=== PATIENT | male | born 1975 | race Caucasian/White ===

== ENCOUNTER → 2022-02-04 15:18 | Outpatient (BNVA) | payer MEDICAID, SELFPAY | PROVIDERS: Family Provider Family Medicine; Visit Provider Registered Nurse | DX: Z79.899 Other long term (current) drug therapy (principal) | CPT/HCPCS: 80053; 80061; 82306; 83036; 83721; 84443; 85025 ==

== ENCOUNTER → 2022-03-27 07:57 | Outpatient (BNVA) | payer MEDICAID, SELFPAY | PROVIDERS: Family Provider Family Medicine; Visit Provider Urology | DX: L72.3 Sebaceous cyst (principal) | CPT/HCPCS: G0463; 81003; 99203 ==

== ENCOUNTER → 2023-02-17 13:57 | Outpatient (BNVA) | payer MEDICAID, SELFPAY | PROVIDERS: Family Provider Family Medicine; PCP Family Medicine; Visit Provider Registered Nurse | DX: Z79.899 Other long term (current) drug therapy (principal) | CPT/HCPCS: 80053; 80061; 80164; 82306; 82607; 83036; 83540; 83721; 84443; 85025 ==

== ENCOUNTER 2023-12-01 22:37 | Inpatient (IN) | payer MEDICAID, SELFPAY ==
[2023-12-01 22:42] VITALS: BMI 30.6
[2023-12-01 22:48] VITALS: BP 163/103; PULSE 122; RESP 20; TEMP 36.6; O2SAT 95
[2023-12-01 22:54] LABS: Glucose Point of Care 304 mg/dL (70-110)
[2023-12-02 00:03] LABS: Alcohol Level < 10 mg/dL (0-10)
[2023-12-02] MEDS: trazodone 50 mg Tablet PO (00:05)
--- NOTE | 2023-12-02 00:30 | PC.NURSE ---
Admission Note Pt arrived to NPU at 2232 by EMS from [facility]. Pt states that he is here because he has been off his psych medications for 3 weeks and today he attempted to cut his wrists but his aunt caught him and called EMS to bring him to the hospital. He states that he has just been feeling really depressed lately. Pt denies SI/HI/AVH at this time. Pt is dressed into N[facility] scrubs and orientated to the unit. Pt is now observed resting in bed quietly with eyes closed. Behavioral monitoring continues
[2023-12-02 06:00] VITALS: BP 147/75; PULSE 90; RESP 18; TEMP 36.6; O2SAT 93
--- NOTE | 2023-12-02 06:30 | P.NPUHP_ITS ---
Providers/Chief Complaint Admitting Physician: Mark Ramos MD Primary Care Provider: Ruth Ann Carranza DO HPI NPU History of Present Illness Barrie Almanzar is a 48 year old male who presented to the emergency department at outside hospital reporting that he had been off of his medication for 2 weeks and starting to feel increased depression and suicidal thoughts. He was transferred to [facility] and admitted to the neuropsychiatric unit for definitive treatment of those issues. He is known to [facility] through services dating back to [address] He is unknown to the neuropsychiatric unit. An excerpt of an outpatient psychiatric evaluation from February 2014 is included for historical context. He presented today reporting: CHIEF COMPLAINT Patient ran out of medication a couple of weeks ago, starting to feel depressed and suicidal. HISTORY OF THE PRESENT COMPLAINT Barrie, the patient, reported that he had run out of his medication a couple of weeks ago due to transportation issues and difficulties in accessing his doctor's office. He has been off his medication for a couple of weeks and has started to feel depressed and suicidal. The medications he was on before he ran out include Terequel, Depakote, Select Halima, and Buspar. Barrie has been dealing with symptoms of bipolar depression and anxiety for about five years. He first started experiencing these symptoms and needing medication around the same time. A significant event that occurred around this time was the loss of his mother, which he reported as a major stressor. When he is depressed, Barrie experiences low energy, anhedonia, sleep problems, and feelings of helplessness, hopelessness, and worthlessness. He has also had suicidal thoughts, although this is the first time he has reported them. He denied experiencing paranoia, hallucinations, or severe nightmares or flashbacks about traumatic events in his life. Barrie reported that he uses tobacco and consumes alcohol very little. He denied using marijuana, cocaine, methamphetamine, opiates, or pain pills, except for prescribed hydrocodone. He has not had any problems with these substances in the past and has never been to rehab or had a DUI. Barrie's goal is to get his medications back on track to manage his symptoms. He has been on disability since around 2014 or 2015 and currently lives with his aunt. He has not had any legal problems or been to halfway. He reported having high blood pressure and diabetes, as well as degenerative disc disease. He has had surgeries for a cyst on his left wrist and a stomach hernia. At the time of the consultation, Barrie described his mood as okay and denied having current thoughts of self-harm or harm to others. He also denied feeling paranoid or experiencing hallucinations. MENTAL HEALTH HISTORY Patient has been dealing with symptoms for about five or six years, following the loss of his mother. Diagnosed with bipolar depression and anxiety. No history of psychiatric hospitalization. No history of substance abuse or addiction. No history of sexual abuse. No history of traumatic events. No history of service. No history of legal problems. SOCIAL HISTORY Patient has difficulty with transportation, leading to difficulty in accessing medical care. Patient uses tobacco and consumes alcohol very little. No use of cannabis, cocaine, methamphetamine, opiates, or pain pills. Patient has a younger sister. Patient was once and is now . Patient is on disability since 2014 or 2015. Patient lives with his aunt. Per his 02/21/2014 [facility] outpatient psychiatric evaluation: [facility] Outpatient Progress Note Time in: 10:40 AM Time out: 11:20 AM Chief Complaint: Depression and bipolar History of present illness: Barrie is a 38-year-old white male who presents for the evaluation of bipolar disorder. He was given this diagnosis several years ago and has been tried on a few different mood stabilizers including Depakote, Seroquel, and Lamictal with no benefit. He currently is taking a combination of bupropion XL 150 mg daily, temazepam 30 mg at night, and Lamictal 100 mg daily. He has received no benefit from this medication. He is not having any side effects. I asked him why he carries a diagnosis of bipolar disorder he tells me I have mood swings that happen real quickd . Basically he has affective dysregulation, poor frustration tolerance, and irritability that has been confused for manic episodes. He could not describe anything that sounds remotely close to a manic episode in his life. The longest a mood swing has lasted has been for a couple hours and is usually only a few minutes. Given this, I am changing his diagnosis. I have no doubt that he is depressed and he is obviously quite melancholic today. He endorses frequent tearfulness, depression, anhe donia, appetite loss, difficulty initiating and sustaining sleep, and passive thoughts of . He has thoughts of suicide quite frequently, but denies that he would ever do anything to harm himself and he has no desire to harm himself in these thoughts are ego dystonic. He tells me that he has depression that comes and goes, but he is never happy. His entire adult life he has been depressed and I think he most likely has dysthymic disorder on top of major depression. He is an anxious fellow, but I do not think he has generalized anxiety disorder. A major problem he has difficulty initiating and sustaining sleep. He does not have a decreased need for sleep, rather he has insomnia. He has been diagnosed with obstructive sleep apnea and he tells me that he wears his CPAP machine consistently. She has a lot of problems in his life for him. He is attempting to get disability because of a chronic back problem, he has poor, he is isolated from his social network, and his stepfather is dying. In fact, he tells me that his stepfather most likely today and he was quite shaken up about this. I offer to reschedule his evaluation, but he wanted to go through with it today. I explained to him that any treatment we give needs to be viewed in light of the fact that he is going through bereavement. Barrie is a rather simple man and I suspect that there is a borderline level of intellectual functioning. He was in special classes growing up and states I am slow . Past Psychiatric History: No hospitalizations, no suicide attempts, no history of self-mutilation. Family Psychiatric History: He tells me that everyone in his family has been diagnosed with bipolar disorder, but I doubt this. No family history of suicide. Past Medical History:COPD, obstructive sleep apnea, asthma, hypertension, chronic back pain Substance Use History: He has never had a problem with drugs or alcohol. He rarely drinks alcohol and has never tried illicit substances. Social History: He was born and raised in [place]. His parents when he was 5 years old and he has no contact with his biological father. His mother his stepfather when he was 5 and he tells me he's been my father since then . His stepfather is currently dying. Barrie has one full sister and 5 half siblings very at he tells me that his childhood was aright . There is no history of physical or sexual trauma. He was in special education classes and he quit in 10th grade, but ended up getting a GED. He lives in trouble with his girlfriend Tahira and they have been together for 4 years. He was once for 6 years in his 20s, but they had a mutual separation. He has no children. He is unemployed and trying to get disability. He has no access to firearms. He tells me that he believes in God, but does not go to [facility]. He has no current legal problems and only has a history of shoplifting on one occasion. Meds NPU Home Medications Medication Instructions Recorded Confirmed Last Taken Type insulin glargine 100 unit/mL 25 unit SUBCUT .bedtime 10/10/19 12/01/23 12/01/23 History subcutaneous solution (Lantus U-100 Insulin) gabapentin 300 mg capsule 300 mg PO TID 02/04/22 12/01/23 12/01/23 History cholecalciferol (vitamin D3) 25 25 mcg PO DAILY 02/27/22 12/01/23 12/01/23 History mcg (1,000 unit) capsule empagliflozin 5 mg-metformin 1,000 1 tab PO BID 02/27/22 12/01/23 12/01/23 History mg tablet (Synjardy) hydrocodone 7.5 mg-acetaminophen 1 tab PO BID PRN Pain (Scale Score 02/27/22 12/01/23 Unknown History 325 mg tablet 4-6) omeprazole 40 mg capsule,delayed 40 mg PO DAILY 02/27/22 12/01/23 12/01/23 History release albuterol sulfate 2.5 mg/3 mL 2.5 mg inhalation Q6H 03/05/22 12/01/23 Unknown History (0.083 %) solution for nebulization atorvastatin 40 mg tablet 40 mg PO DAILY 03/05/22 12/01/23 12/01/23 History fluticasone propionate 50 1 spray intranasal BID 03/05/22 12/01/23 12/01/23 History mcg/actuation nasal spray,suspension levocetirizine 5 mg tablet 5 mg PO DAILY 03/05/22 12/01/23 12/01/23 History ropinirole 0.25 mg tablet 0.25 mg PO DAILY 03/05/22 12/01/23 11/30/23 History metoprolol tartrate 50 mg tablet 25 mg PO BID 09/16/22 12/01/23 12/01/23 History buspirone 30 mg tablet See Rx Instructions .Route 03/30/23 12/01/23 3 Weeks Ago Rx .COMPLEX #60 tabs ~11/10/23 citalopram 40 mg tablet See Rx Instructions .Route 03/30/23 12/01/23 3 Weeks Ago Rx .COMPLEX #30 tabs ~11/10/23 divalproex 250 mg tablet,extended See Rx Instructions .Route 03/30/23 12/01/23 3 Weeks Ago Rx release 24 hr .COMPLEX #120 tabs ~11/10/23 quetiapine 200 mg tablet See Rx Instructions .Route 03/30/23 12/01/23 3 Weeks Ago Rx .COMPLEX #30 tabs ~11/10/23 trazodone 100 mg tablet See Rx Instructions .Route 03/30/23 12/01/23 3 Weeks Ago Rx .COMPLEX #60 tabs ~11/10/23 Allergies Allergy/AdvReac Type Severity Reaction Status Date / Time bacitracin Allergy Unknown Unknown Verified 03/27/22 08:08 chlorzoxazone Allergy Unknown Unknown Verified 03/27/22 08:08 [From Parafon Forte] neomycin Allergy Unknown Unknown Verified 03/27/22 08:08 polymyxin B Allergy Unknown Unknown Verified 03/27/22 08:08 PFSH NPU PFSH: Medical History (Updated 12/02/23 @ 21:16 by Mark Ramos MD) Insomnia Psychiatric care Obstructive sleep apnea (adult) (pediatric) Nicotine dependence, cigarettes, with other nicotine-induced disorders Bipolar disorder, current episode depressed, moderate Family History Mother , in 60s Diabetes CAD (coronary artery disease) Heart attack Social History Smoking and tobacco/nicotine status: current every day tobacco/nicotine user Alcohol intake: current Alcohol intake frequency: holidays/special occasions only Adopted: No Household members: significant other Marital status: Current occupational status: disabled Mental Status Exam MSE Comments: This is an obese white male in hospital scrubs with limited grooming and eye contact. No abnormal movements except for psychomotor retardation. Cooperative with exam in mild distress. Speech was decreased rate and volume. Mood described as depressed, affect congruent and tearful. Thought process organized. Thought content: Patient endorsed some suicidal ideation prior to admission but currently denies suicidal or homicidal ideations, there were no delusions reported or noted, he denied any visual hallucinations but endorses auditory hallucinations. Patient reports feelings of depression, helplessness, hopelessness, worthlessness. Patient has been suicidal. Patient reports low energy, lack of enjoyment in activities, and sleep problems. No current thoughts of self-harm or harm to others. No paranoia. No auditory or visual hallucinations. Mood described as okay .Attention and concentration were limited and memory appeared mostly reliable but were not formally tested. He is alert and oriented x3. Insight and judgment are limited but improving and impulse control is limited versus impaired. Vitals/I&O/Wt Last Vital Signs Temp 97.9 F 12/02/23 06:00 Pulse 90 12/02/23 06:00 Resp 18 12/02/23 06:00 BP 147/75 12/02/23 06:00 Pulse Ox 93 12/02/23 06:00 O2 Del Method Room Air 12/02/23 06:00 Weight last 48 hrs Weight 99.564 kg A&P Assessment and plan (1) Bipolar disorder, current episode depressed, moderate: (2) Obstructive sleep apnea (adult) (pediatric): (3) Nicotine dependence, cigarettes, with other nicotine-induced disorders: (4) Anxiety: Plan This is a 48-year-old white male known to the [facility] system from a long history of treatment with reports of anxiety, depression and some psychosis that has been dealing with bipolar depression and anxiety. Patient's symptoms have been exacerbated by the loss of his mother years ago and the recent discontinuation of his medication. Patient's social situation, including difficulty with transportation and living situation, may be contributing to his mental health issues. 1. Restart previous medication. 2. Continue every 15 minute checks for safety. 3. Encourage individual, group and milieu therapy. 4. Encourage sober living treatment at the highest level of care to which he is willing to commit. Involuntary Hold Information 96 Hour Hold: 96 Hour Involuntary Admission: No Attestations U Medical Necessity Statement*: Inpatient psychiatric evaluation is medically necessary and the clinically appropriate intervention at this time. We will monitor/initiate medications and make changes as indicated. He will be in the hospital for over 2 midnights. Likely length of stay 3 to 5 days. Coding Level of Care Code Acute Code for Chg Fwd Diagnoses Bipolar disorder, current episode depressed, moderate F31.32 Obstructive sleep apnea (adult) (pediatric) G47.33 Nicotine dependence, cigarettes, with other nicotine-induced disorders F17.218 Anxiety F41.9
[2023-12-02 07:37] LABS: Glucose Point of Care 166 mg/dL (70-110)
[2023-12-02] MEDS: atorvastatin 40 mg Tablet PO (09:21)
[2023-12-02] MEDS: metoprolol tartrate 50 mg Tablet 25 MG PO ×2 (09:21→17:15)
[2023-12-02] MEDS: pantoprazole DR 40 mg Tablet PO (09:21)
[2023-12-02] MEDS: gabapentin 300 mg Capsule PO ×3 (09:21→21:05)
[2023-12-02] MEDS: nicotine 4 mg lozenge MUCOUS MEM ×2 (09:29→17:30)
[2023-12-02] MEDS: hyDROXYzine 25 mg Capsule 50 MG PO ×2 (10:38→21:05)
[2023-12-02 11:56] LABS: Glucose Point of Care 264 mg/dL (70-110)
--- NOTE | 2023-12-02 12:21 | PC.NURSE ---
patient suspects that he is having an allergic/adverse reaction to vistaril. VS are WNLs. Patient denies itchy throat, swollen tongue, rash. Patient reports sweating.
[2023-12-02] MEDS: OLANZapine 5 mg ODT PO (12:25)
--- NOTE | 2023-12-02 12:26 | PC.NURSE ---
patient suspects that he is having an allergic/adverse reaction to vistaril. VS are WNLs. Patient denies itchy throat, swollen tongue, rash. Patient reports sweating.
[2023-12-02 13:18] VITALS: BP 143/96; PULSE 112; RESP 17; TEMP 36.3; O2SAT 95
[2023-12-02 13:22] LABS: Glucose Point of Care 281 mg/dL (70-110)
[2023-12-02] MEDS: ibuprofen 600 mg Tablet PO (14:37)
--- NOTE | 2023-12-02 14:45 | P.CONIM_ITS ---
Providers/Reason For Consult 2 Consulting Physician/Specialty*: Internal medicine/Melissa MD Kinga Reason for Consult*: Medical management Attending Physician: Mark Ramos MD Primary Care Provider: Ruth Ann Carranza DO History of Present Illness History of Present Illness Barrie Almanzar is a 48 year old male With past medical history of psychiatric care, COPD, obstructive sleep apnea, bipolar disorder, hypertension, hyperlipidemia, chronic back pain, restless leg syndrome, active smoker, type 2 diabetes mellitus insulin-dependent presented to the hospital for psychiatric care running out of his medications few weeks ago and starting to feel depressed and suicidal. Patient is currently on the Neuropsych Unit admitted under Dr. Ramos care for the above. Medicine was consulted for call medical management of the patient. He states he takes 50 units of Lantus daily and is also on metformin empagliflozin tablets. He states he is compliant to his medications. He does smoke however does not want a nicotine patch at this time. Other than that he says he has chronic back pain for which she takes hydrocodone. Socially drinks as well. Says he is on inhalers at home for his COPD. Denies a cough, shortness of breath, chest pain, nausea, vomiting, diarrhea at this time. Medications/Allergies Home Medications Medication Instructions Recorded Confirmed Last Taken Type insulin glargine 100 unit/mL 25 unit SUBCUT .bedtime 10/10/19 12/01/23 12/01/23 History subcutaneous solution (Lantus U-100 Insulin) gabapentin 300 mg capsule 300 mg PO TID 02/04/22 12/01/23 12/01/23 History cholecalciferol (vitamin D3) 25 25 mcg PO DAILY 02/27/22 12/01/23 12/01/23 History mcg (1,000 unit) capsule empagliflozin 5 mg-metformin 1,000 1 tab PO BID 02/27/22 12/01/23 12/01/23 History mg tablet (Synjardy) hydrocodone 7.5 mg-acetaminophen 1 tab PO BID PRN Pain (Scale Score 02/27/22 12/01/23 Unknown History 325 mg tablet 4-6) omeprazole 40 mg capsule,delayed 40 mg PO DAILY 02/27/22 12/01/23 12/01/23 History release albuterol sulfate 2.5 mg/3 mL 2.5 mg inhalation Q6H 03/05/22 12/01/23 Unknown History (0.083 %) solution for nebulization atorvastatin 40 mg tablet 40 mg PO DAILY 03/05/22 12/01/23 12/01/23 History fluticasone propionate 50 1 spray intranasal BID 03/05/22 12/01/23 12/01/23 History mcg/actuation nasal spray,suspension levocetirizine 5 mg tablet 5 mg PO DAILY 03/05/22 12/01/23 12/01/23 History ropinirole 0.25 mg tablet 0.25 mg PO DAILY 03/05/22 12/01/23 11/30/23 History metoprolol tartrate 50 mg tablet 25 mg PO BID 09/16/22 12/01/23 12/01/23 History buspirone 30 mg tablet See Rx Instructions .Route 03/30/23 12/01/23 3 Weeks Ago Rx .COMPLEX #60 tabs ~11/10/23 citalopram 40 mg tablet See Rx Instructions .Route 03/30/23 12/01/23 3 Weeks Ago Rx .COMPLEX #30 tabs ~11/10/23 divalproex 250 mg tablet,extended See Rx Instructions .Route 03/30/23 12/01/23 3 Weeks Ago Rx release 24 hr .COMPLEX #120 tabs ~11/10/23 quetiapine 200 mg tablet See Rx Instructions .Route 03/30/23 12/01/23 3 Weeks Ago Rx .COMPLEX #30 tabs ~11/10/23 trazodone 100 mg tablet See Rx Instructions .Route 03/30/23 12/01/23 3 Weeks Ago Rx .COMPLEX #60 tabs ~11/10/23 Allergies Allergy/AdvReac Type Severity Reaction Status Date / Time bacitracin Allergy Unknown Unknown Verified 03/27/22 08:08 chlorzoxazone Allergy Unknown Unknown Verified 03/27/22 08:08 [From Parafon Forte] neomycin Allergy Unknown Unknown Verified 03/27/22 08:08 polymyxin B Allergy Unknown Unknown Verified 03/27/22 08:08 Current Medications Generic Name Dose Route Start Last Admin Trade Name Freq PRN Reason Stop Dose Admin Atorvastatin Calcium 40 mg 12/02/23 09:00 12/02/23 09:21 Atorvastatin 40 Mg Tablet PO 40 mg DAILY DUNIA Administration Gabapentin 300 mg 12/02/23 09:00 12/02/23 14:37 Gabapentin 300 Mg Capsule PO 300 mg TID DUNIA Administration Hydroxyzine Pamoate 50 mg 12/01/23 22:47 12/02/23 10:38 Hydroxyzine 25 Mg Capsule PO 50 mg Q6H PRN Administration ANXIETY Ibuprofen 600 mg 12/01/23 22:47 12/02/23 14:37 Ibuprofen 600 Mg Tablet PO 600 mg Q6H PRN Administration MODERATE PAIN Metoprolol Tartrate 25 mg 12/02/23 09:00 12/02/23 09:21 Metoprolol Tartrate 50 Mg Tablet PO 25 mg BID DUNIA Administration Nicotine Polacrilex 4 mg 12/02/23 08:20 12/02/23 09:29 Nicotine 4 Mg Lozenge MUCOUS MEM 4 mg Q2H PRN Administration NICOTINE CRAVINGS Non-Formulary Medication 5 mg 12/02/23 09:00 12/02/23 09:21 Levocetirizine PO Not Given DAILY DUNIA Olanzapine 5 mg 12/01/23 22:47 12/02/23 12:25 Olanzapine 5 Mg Odt PO 5 mg Q4H PRN Administration Agitation/Psychosis Pantoprazole Sodium 40 mg 12/02/23 09:00 12/02/23 09:[address] 40 Mg Tablet PO 40 mg DAILY DUNIA Administration Trazodone HCl 50 mg 12/01/23 22:47 12/02/23 00:05 Trazodone 50 Mg Tablet PO 50 mg BEDTIME PRN Administration SLEEP PFSH Acute 2 PFSH: Medical History (Updated 12/03/23 @ 08:56 by Melissa Donato MD) Type 2 diabetes mellitus COPD (chronic obstructive pulmonary disease) Hyperlipemia Insomnia Psychiatric care Obstructive sleep apnea (adult) (pediatric) Nicotine dependence, cigarettes, with other nicotine-induced disorders Bipolar disorder, current episode depressed, moderate Surgical History (Updated 12/03/23 @ 08:56 by Melissa Donato MD) History of carpal tunnel release Family History Mother , in 60s Diabetes CAD (coronary artery disease) Heart attack Social History Smoking and tobacco/nicotine status: current every day tobacco/nicotine user Alcohol intake: current Alcohol intake frequency: holidays/special occasions only Adopted: No Household members: significant other Marital status: Current occupational status: disabled Vitals/I&O/Wt Last Vital Signs Temp 97.3 F L 12/02/23 13:18 Pulse 112 H 12/02/23 13:18 Resp 17 12/02/23 13:18 BP 143/96 12/02/23 13:18 Pulse Ox 95 12/02/23 13:18 O2 Del Method Room Air 12/02/23 06:00 Weight last 48 hrs Weight 99.564 kg Physical Exam 2 Narrative: General: Alert oriented x3, patient seen sitting up on bench beside the telephone and Neuropsych Unit. He just got off the phone with somebody. No acute distress. Breathing normally on room air. HEENT: Normocephalic, atraumatic, EOMI, where Cardio: Regular rate rhythm, normal S1-S2 Respiratory: Fair bilateral air entry, no wheezes no rhonchi appreciated GI: Abdomen soft, nontender, nondistended, bowel sounds + Behavior: Appropriate and cooperative Extremities: Grossly normal, no edema. Data 12/03/23 08:08 12/03/23 08:08 A&P Assessment and plan (1) Bipolar disorder, current episode depressed, moderate: (2) Anxiety: (3) Nicotine dependence, cigarettes, with other nicotine-induced disorders: (4) Hypertension: (5) COPD (chronic obstructive pulmonary disease): (6) Hyperlipemia: (7) Psychiatric care: (8) Insulin dependent diabetes mellitus: Plan #Type 2 diabetes mellitus, insulin-dependent #Hypertension #Hyperlipidemia #Chronic back pain #Restless leg syndrome #Smoker ? Continue hydrocodone 1 tablet twice daily as needed for pain ? Continue omeprazole 40 daily ? Continue ropinirole 0.25 daily ? Continue metoprolol tartrate 50 twice daily ? Hold empagliflozin, metformin at this time. ? Continue on Lantus 50 units daily ? Placed on moderate dose intensity sliding scale insulin ? Check sugars ACHS ? Continue atorvastatin 40 daily ? DuoNeb every 6 hours as needed for shortness of breath ? Patient declined nicotine patch at this time ? Check CBC, CMP, magnesium, phosphorus now for baseline labs ? Recheck CBC and BMP in AM. ? Check hemoglobin A1c #Suicidal ideation #Depression/anxiety #Bipolar disorder ? Management as per psychiatry Full code DVT prophylaxis low risk as patient is ambulatory Thank you for consultation. Medicine will continue to follow while patient is hospitalized. Consult Attestations 2 Medical Necessity Statement: Defer to primary team Diagnoses Bipolar disorder, current episode depressed, moderate F31.32 Anxiety F41.9 Nicotine dependence, cigarettes, with other nicotine-induced disorders F17.218 Hypertension I10 COPD (chronic obstructive pulmonary disease) J44.9 Hyperlipemia E78.5 Psychiatric care Insulin dependent diabetes mellitus
[2023-12-02] MEDS: albuterol 2.5 mg/3 mL Neb INHALATION (15:46)
[2023-12-02 15:48] VITALS: PULSE 81; RESP 16; O2SAT 96
[2023-12-02] MEDS: divalproex ER 250 mg Tablet (24H) 750 MG PO (17:13)
[2023-12-02 17:21] LABS: Glucose Point of Care 268 mg/dL (70-110)
[2023-12-02] MEDS: insulin lispro 100 unit/1 mL SUBCUT ×2 (18:13→21:04)
--- NOTE | 2023-12-02 18:17 | PC.NURSE ---
[facility] [place] was contacted and it was confirmed that patient uses 2L of oxygen overnight.
--- NOTE | 2023-12-02 18:38 | PC.NURSE ---
Patient reported to this nurse that he isn't always compliant with his oxygen use overnight. Patient states that if he wakes up overnight with SOB, he will apply his nasal canula on 2 Liters. Night staff will be informed of this and that if a sitter becomes available they are to come to [facility]PU for this patient. Discussed this with Salvage Worker and Dr. Ramos.
[2023-12-02 19:57] LABS: Glucose Point of Care 381 mg/dL (70-110)
[2023-12-02 20:01] VITALS: BP 116/75; PULSE 93; RESP 16; TEMP 37.1; O2SAT 95
[2023-12-02] MEDS: ropinirole 0.25 mg Tablet PO (21:05)
[2023-12-02 21:13] LABS: Basophils # 0.1 10^3/uL (0.0-0.1); Basophils % 0.7 %; Eosinophils # 0.1 10^3/uL (0.0-0.8); Eosinophils % 1.1 %; Lymphocytes # 3.3 10^3/uL (0.8-4.8); Lymphocytes % 38.6 %; Mean Corpuscular HGB Conc 33.6 g/dL (30-55); Mean Corpuscular Hemoglobin 30.7 pg (27-33); Mean Corpuscular Volume 91.3 fl (82-101); Mean Platelet Volume 10.9 fL (7.4-10.4); Monocytes # 0.8 10^3/uL (0.2-0.9); Monocytes % 8.9 %; Neutrophils # 4.26 10^3/uL (1.8-7.7); Neutrophils % 50.3 %; Nucleated Red Blood Cells % 0 %; Platelet Count 191 10^3/cmm (157-399); Red Blood Count 5.15 10^6/uL (3.85-5.65); Red Cell Distribution Width 12.4 % (12.1-15.1); White Blood Count 8.45 10^3/uL (3.29-11.43)
[2023-12-02 21:31] LABS: Alanine Aminotransferase 6 U/L (0-41); Albumin Level 3.6 g/dL (3.5-5.2); Alkaline Phosphatase 95 U/L (40-130); Aspartate Amino Transferase 10 U/L (0-40); Blood Urea Nitrogen 15 mg/dL (6-20); Calcium 8.8 mg/dL (8.5-10.5); Chloride 104 mmol/L (98-107); Creatinine Clr Calc Pharmacy 181.0304; Globulin 2.6 g/dL (1.3-4.6); Glomerular Filtration Rate 143.8 mL/min (90-130); Glucose 333 mg/dL (65-115); Magnesium 1.9 mg/dL (1.7-2.3); Osmolality Calculated 296 mOsm/kg (285-295); Phosphorus 2.7 mg/dL (2.5-4.5); Potassium 3.9 mmol/L (3.5-5.1); Sodium 136 mmol/L (136-145); Total Bilirubin 0.2 mg/dL (0.15-1.2); Total Protein 6.2 g/dL (6.6-8.7)
[2023-12-02 21:37] LABS: Procalcitonin 0.16 ng/mL (0-0.5)
[2023-12-02] MEDS: trazodone 100 mg Tablet PO (21:39)
[2023-12-02] MEDS: quetiapine 100 mg Tablet 200 MG PO (21:39)
[2023-12-02 23:20] LABS: Estmated Average Glucose 249; Hemoglobin A1C 10.3 % (4.0-6.0)
[2023-12-02] MEDS: HYDROcodone-acetaminophen 7.5-325 mg Tablet 1 TAB PO (23:45)
[2023-12-02 23:58] LABS: Anion Gap 14.9 (5-19); Carbon Dioxide 21 mmol/L (22-29)
[2023-12-03] VITALS (7 sets, daily range): BP systolic 107–128; BP diastolic 66–80; PULSE 92–111; RESP 16–20; TEMP 36.4–36.9; O2SAT 88–95
[2023-12-03 07:28] LABS: Glucose Point of Care 267 mg/dL (70-110)
[2023-12-03 08:19] LABS: Basophils # 0.1 10^3/uL (0.0-0.1); Basophils % 0.7 %; Eosinophils # 0.1 10^3/uL (0.0-0.8); Eosinophils % 1.2 %; Hematocrit 48.9 % (37-53); Lymphocytes # 3.2 10^3/uL (0.8-4.8); Lymphocytes % 38.4 %; Mean Corpuscular HGB Conc 32.7 g/dL (30-55); Mean Corpuscular Hemoglobin 30.2 pg (27-33); Mean Corpuscular Volume 92.3 fl (82-101); Mean Platelet Volume 11.1 fL (7.4-10.4); Monocytes # 0.8 10^3/uL (0.2-0.9); Monocytes % 9.2 %; Neutrophils # 4.13 10^3/uL (1.8-7.7); Neutrophils % 50.3 %; Nucleated Red Blood Cells % 0 %; Platelet Count 158 10^3/cmm (157-399); Red Cell Distribution Width 12.5 % (12.1-15.1); White Blood Count 8.23 10^3/uL (3.29-11.43)
[2023-12-03] MEDS: albuterol 2.5 mg/3 mL Neb INHALATION ×3 (08:25→21:38)
[2023-12-03] MEDS: citalopram 20 mg Tablet PO (08:36)
[2023-12-03] MEDS: metoprolol tartrate 50 mg Tablet 25 MG PO ×2 (08:36→17:22)
[2023-12-03] MEDS: gabapentin 300 mg Capsule PO ×3 (08:36→20:51)
[2023-12-03] MEDS: BuSPIRONE 10 mg Tablet 30 MG PO ×2 (08:36→17:22)
[2023-12-03] MEDS: atorvastatin 40 mg Tablet PO (08:36)
[2023-12-03 08:37] LABS: Blood Urea Nitrogen 14 mg/dL (6-20); Calcium 8.9 mg/dL (8.5-10.5); Carbon Dioxide 22 mmol/L (22-29); Chloride 107 mmol/L (98-107); Glomerular Filtration Rate 177.5 mL/min (90-130); Glucose 287 mg/dL (65-115); Magnesium 1.9 mg/dL (1.7-2.3); Osmolality Calculated 305 mOsm/kg (285-295); Sodium 142 mmol/L (136-145)
[2023-12-03] MEDS: HYDROcodone-acetaminophen 7.5-325 mg Tablet 1 TAB PO ×2 (08:37→20:10)
[2023-12-03] MEDS: amlodipine 10 mg Tablet PO (08:37)
[2023-12-03] MEDS: pantoprazole DR 40 mg Tablet PO (08:37)
[2023-12-03] MEDS: divalproex ER 250 mg Tablet (24H) PO (08:37)
[2023-12-03] MEDS: insulin glargine 100 units/1 mL 50 UNIT SUBCUT (08:38)
[2023-12-03 08:39] LABS: Creatinine Clr Calc Pharmacy 217.2365
[2023-12-03 08:40] LABS: Anion Gap 16.9 (5-19); Potassium 3.9 mmol/L (3.5-5.1)
--- NOTE | 2023-12-03 08:59 | PC.NURSE ---
RESTING IN ROOM AROUSES TO VOICE. RATES PAIN 8/10 IN BACK, HYDROCODONE 7.5MGMG WAS GIVEN ORDERED FOR PAIN. DENIES SI/HI AND AVH AT THIS TIME. RATES ANXIETY 2/10 AND DEPRESSION 3/10. PT REFUSES HUMALOG INSULIN 10 UNIT, PT STATES I ONLY TAKE THE LANTUS SO I AM NOT TAKING THAT STUFF. PT MUMBLES WHEN SPEAKING AND IS HARD TO UNDERSTAND. AFFECT IS FLAT AND PT IS OBSERVED BEING WITHDRAWN TO ROOM. NO EYE CONTACT DURING ASSESSMENT. ALL QUESTIONS WERE ANSWERED AND SUPPPORT WAS VOICED.
[2023-12-03 11:59] LABS: Glucose Point of Care 336 mg/dL (70-110)
[2023-12-03] MEDS: insulin lispro 100 unit/1 mL SUBCUT ×3 (12:23→20:52)
--- NOTE | 2023-12-03 12:42 | PM.MISC ---
Miscellaneous Note Purpose of Documentation: Reviewed blood sugars from this morning. I will increase Lantus to 55 units nightly and change sliding scale insulin to high-dose. Patient has also been refusing his sliding scale during hospitalization. It will be difficult to control his sugars. Ideally I would like to add a Premeal insulin however after talking to nursing staff it seems patient will be refusing most of it. To keep the pricking to a minimum I have changed his sliding scale to high-dose intensity at this time. He was not physically seen today. Chart reviewed peripherally and order adjustments made.
--- NOTE | 2023-12-03 14:14 | PC.NURSE ---
PT REFUSED TO TAKE INSULIN 10 UNITS OF HUMALOG THIS AM FOR BLOOD SUGAR OF 267. PT STATES I ONLY TAKE THE LANTUS I DON'T TAKE THAT OTHER SHIT AND I DON'T WANT IT. RN ASSURED PT THAT NO ONE IS GOING TO FORCE HIM TO TAKE THE HUMALOG INSULIN BUT IT WOULD BE IN HIS BEST INTEREST TO DECREASE THE BLOOD SUGAR. BLOOD GLUCOSE AT LUNCH WAS 336, RN WENT TO PT AND EDUCATED HIM ON THE HARM OF HAVING ELEVATED BLOOD GLUCOSE, PT DID VERBALIZE UNDERSTANDING AND DID AGREE TO TAKE THE NOON DOSE OF 12 UNITS OF HUMALOG SUB-Q. ALL QUESTIONS WERE ANSWERED AND SUPPORT WAS VOICED.
--- NOTE | 2023-12-03 15:46 | PC.NURSE ---
RN CALLED DR. TOM TO NOTIFY OF PT REFUSING AM HUMALOG INSULIN 10 UNITS THIS MORNING AND TO CLARIFY NEW INSULIN ORDERS. GLUCOSE ASSESSMENT ADDED TO OBTAIN BLOOD GLUCOSE 2 HOURS AFTER EATING EACH MEAL WELL CONTINUING AC AND HS GLUCOSE TESTING
--- NOTE | 2023-12-03 15:48 | W.PM.NPUPNS ---
Subjective NPU Subjective: Patient presents today reporting that he is doing okay. He has had some challenges in regards to his blood sugars and diabetes medications that have been managed by the hospitalist. We discussed the importance of him managing his blood sugars and keeping with improving his mental health. He reports being desirous of getting discharged sooner rather than later as he has been restarted on his medications. We discussed making sure that he has some days of stability under his belt of the medication back in his system prior to discharge. He denies any side effects of the medication. Mental Status Exam MSE Comments: This is an obese white male in hospital scrubs with limited grooming and eye contact. No abnormal movements except for psychomotor retardation. Cooperative with exam in mild distress. Speech was decreased rate and volume. Mood described as depressed, affect congruent and tearful. Thought process organized. Thought content: Patient endorsed some suicidal ideation prior to admission but currently denies suicidal or homicidal ideations, there were no delusions reported or noted, he denied any visual hallucinations but endorses auditory hallucinations. Patient reports feelings of depression, helplessness, hopelessness, worthlessness. Patient has been suicidal. Patient reports low energy, lack of enjoyment in activities, and sleep problems. No current thoughts of self-harm or harm to others. No paranoia. No auditory or visual hallucinations. Mood described as okay .Attention and concentration were limited and memory appeared mostly reliable but were not formally tested. He is alert and oriented x3. Insight and judgment are limited but improving and impulse control is limited versus impaired. Vitals/I&O/Wt Last Vital Signs Temp 97.5 F L 12/03/23 14:00 Pulse 111 H 12/03/23 14:00 Resp 20 H 12/03/23 14:00 BP 107/66 12/03/23 14:00 Pulse Ox 95 12/03/23 14:00 O2 Del Method Room Air 12/03/23 14:00 Weight last 48 hrs Weight 99.564 kg Data NPU 12/03/23 08:08 12/03/23 08:08 A&P Assessment and plan (1) Bipolar disorder, current episode depressed, moderate: (2) Obstructive sleep apnea (adult) (pediatric): (3) Nicotine dependence, cigarettes, with other nicotine-induced disorders: (4) Anxiety: Plan This is a 48-year-old white male known to the [facility] system from a long history of treatment with reports of anxiety, depression and some psychosis that has been dealing with bipolar depression and anxiety. Patient's symptoms have been exacerbated by the loss of his mother years ago and the recent discontinuation of his medication. Patient's social situation, including difficulty with transportation and living situation, may be contributing to his mental health issues. 1. Restart previous medication. Including Seroquel, Celexa, BuSpar and Depakote. 2. Continue every 15 minute checks for safety. 3. Encourage individual, group and milieu therapy. 4. Encourage sober living treatment at the highest level of care to which he is willing to commit. Involuntary Hold Information 96 Hour Hold: 96 Hour Involuntary Admission: No Attestations U Medical Necessity Statement*: Inpatient psychiatric evaluation is medically necessary and the clinically appropriate intervention at this time. We will monitor/initiate medications and make changes as indicated. Likely length of stay 2-4 days. Coding Level of Care Code Acute Code for [facility] Fwd Diagnoses Bipolar disorder, current episode depressed, moderate F31.32 Obstructive sleep apnea (adult) (pediatric) G47.33 Nicotine dependence, cigarettes, with other nicotine-induced disorders F17.218 Anxiety F41.9
[2023-12-03] MEDS: divalproex ER 250 mg Tablet (24H) 750 MG PO (17:21)
[2023-12-03 17:40] LABS: Glucose Point of Care 291 mg/dL (70-110)
[2023-12-03 18:08] LABS: Amphetamines Screen Urine Negative (Negative); Barbiturates Screen Urine Negative (Negative); Benzodiazepines Screen Urine Negative (Negative); Cocaine Screen Urine Negative (Negative); Opiate Screen Urine Positive (Negative); PCP Screen Urine Negative (Negative); THC Screen Urine Negative (Negative)
[2023-12-03 20:04] LABS: Glucose Point of Care 439 mg/dL (70-110)
[2023-12-03] MEDS: ropinirole 0.25 mg Tablet PO (20:51)
[2023-12-03] MEDS: quetiapine 100 mg Tablet 200 MG PO (20:51)
[2023-12-03] MEDS: trazodone 50 mg Tablet PO (20:51)
[2023-12-03] MEDS: trazodone 100 mg Tablet PO (20:51)
[2023-12-03] MEDS: hyDROXYzine 25 mg Capsule 50 MG PO (20:51)
[2023-12-03] MEDS: OLANZapine 5 mg ODT PO (21:19)
[2023-12-04] VITALS (7 sets, daily range): BP systolic 108–125; BP diastolic 70–81; PULSE 87–114; RESP 16–20; TEMP 36.6; O2SAT 91–96
[2023-12-04] MEDS: acetaminophen 325 mg Tablet 650 MG PO ×3 (05:17→16:05)
[2023-12-04 07:21] LABS: Glucose Point of Care 299 mg/dL (70-110)
[2023-12-04] MEDS: nicotine 4 mg lozenge MUCOUS MEM (08:25)
[2023-12-04] MEDS: citalopram 20 mg Tablet PO (08:25)
[2023-12-04] MEDS: HYDROcodone-acetaminophen 7.5-325 mg Tablet 1 TAB PO ×2 (08:26→20:47)
[2023-12-04] MEDS: divalproex ER 250 mg Tablet (24H) PO (08:26)
[2023-12-04] MEDS: atorvastatin 40 mg Tablet PO (08:26)
[2023-12-04] MEDS: BuSPIRONE 10 mg Tablet 30 MG PO ×2 (08:26→17:09)
[2023-12-04] MEDS: gabapentin 300 mg Capsule PO ×3 (08:26→20:48)
[2023-12-04] MEDS: metoprolol tartrate 50 mg Tablet 25 MG PO ×2 (08:26→17:09)
[2023-12-04] MEDS: pantoprazole DR 40 mg Tablet PO (08:26)
[2023-12-04] MEDS: insulin lispro 100 unit/1 mL SUBCUT ×4 (08:27→20:49)
[2023-12-04] MEDS: insulin glargine 100 units/1 mL 55 UNIT SUBCUT (08:27)
[2023-12-04] MEDS: amlodipine 10 mg Tablet PO (08:27)
[2023-12-04 09:03] LABS: Blood Urea Nitrogen 11 mg/dL (6-20); Calcium 8.9 mg/dL (8.5-10.5); Carbon Dioxide 25 mmol/L (22-29); Chloride 100 mmol/L (98-107); Glomerular Filtration Rate 143.8 mL/min (90-130); Glucose 398 mg/dL (65-115); Osmolality Calculated 298 mOsm/kg (285-295); Sodium 136 mmol/L (136-145)
[2023-12-04] MEDS: albuterol 2.5 mg/3 mL Neb INHALATION ×3 (09:24→21:17)
[2023-12-04 09:26] LABS: Creatinine Clr Calc Pharmacy 181.0304
[2023-12-04 09:27] LABS: Anion Gap 15.3 (5-19); Potassium 4.3 mmol/L (3.5-5.1)
--- NOTE | 2023-12-04 09:42 | PC.NURSE ---
UP IN DAY ROOM WATCHING TV. DENIES SI/HI AND AVH AT THIS TIME. RATES ANXIETY 3/10 AND DEPRESSION 4/10. RATES PAIN IN BACKK 710 HYDROCODONE 7.5MG/325MG GIVEN ORDERED. AFFECT IS FLAT, BUT IS OBSERVED TO BE BETTER THIS AM. COMPLIANT WITH AM HUMALOG AND LANTUS. ALL QUESTIONS WERE ANSWERED AND SUPPORT WAS VOICED.
--- NOTE | 2023-12-04 11:46 | W.PM.NPUPNS ---
Subjective NPU Subjective: Patient presented today reporting that he is feeling better. He began being more focused on how long am I going to have to be here. We discussed the plan for discharge at the beginning of the week if he feels he has acclimated to his medications being restarted. We also discussed wanting to make sure that his blood sugars were more reasonable prior to discharge. We began discussing the logistics of discharge and the fact that the most reasonable outcome would be for discharge Wednesday or Wednesday. He denied any side effects to his medications. Mental Status Exam MSE Comments: This is an obese white male in hospital scrubs with limited grooming and eye contact. No abnormal movements except for psychomotor retardation. Cooperative with exam in mild distress. Speech was decreased rate and volume. Mood described as a little better, affect congruent. Thought process organized. Thought content: Patient endorsed some suicidal ideation prior to admission but currently denies suicidal or homicidal ideations, there were no delusions reported or noted, he denied any visual hallucinations but endorses auditory hallucinations. Patient reports feelings of depression, helplessness, hopelessness, worthlessness. Patient has been suicidal. Patient reports low energy, lack of enjoyment in activities, and sleep problems. No current thoughts of self-harm or harm to others. No paranoia. No auditory or visual hallucinations. Mood described as okay .Attention and concentration were limited and memory appeared mostly reliable but were not formally tested. He is alert and oriented x3. Insight and judgment are limited but improving and impulse control is limited versus impaired. Vitals/I&O/Wt Last Vital Signs Temp 97.9 F 12/04/23 06:00 Pulse 89 12/04/23 09:27 Resp 16 12/04/23 09:27 BP 108/70 12/04/23 06:00 Pulse Ox 94 12/04/23 09:27 O2 Del Method Room Air 12/04/23 09:27 Data NPU 12/03/23 08:08 12/04/23 08:38 A&P Assessment and plan (1) Bipolar disorder, current episode depressed, moderate: (2) Obstructive sleep apnea (adult) (pediatric): (3) Nicotine dependence, cigarettes, with other nicotine-induced disorders: (4) Anxiety: Plan This is a 48-year-old white male known to the [facility] system from a long history of treatment with reports of anxiety, depression and some psychosis that has been dealing with bipolar depression and anxiety. Patient's symptoms have been exacerbated by the loss of his mother years ago and the recent discontinuation of his medication. Patient's social situation, including difficulty with transportation and living situation, may be contributing to his mental health issues. 1. Restarted previous medication. Including Seroquel, Celexa, BuSpar and Depakote. 2. Continue every 15 minute checks for safety. 3. Encourage individual, group and milieu therapy. 4. Encourage sober living treatment at the highest level of care to which he is willing to commit. 5. Appreciate hospitalist consult and will follow recommendations as indicated. Involuntary Hold Information 96 Hour Hold: 96 Hour Involuntary Admission: No Attestations NPU Medical Necessity Statement*: Inpatient psychiatric evaluation is medically necessary and the clinically appropriate intervention at this time. We will monitor/initiate medications and make changes as indicated. Likely length of stay 2-3 days. Coding Level of Care Code Acute Code for [facility] Fwd Diagnoses Bipolar disorder, current episode depressed, moderate F31.32 Obstructive sleep apnea (adult) (pediatric) G47.33 Nicotine dependence, cigarettes, with other nicotine-induced disorders F17.218 Anxiety F41.9
[2023-12-04 12:05] LABS: Glucose Point of Care 358 mg/dL (70-110)
--- NOTE | 2023-12-04 12:14 | PM.MISC ---
Miscellaneous Note Note: switch to lantus 55 in am, 20 units pm continue high intensity SSI restart home metformin 1000 MG BID continue to monitor sugars
[2023-12-04] MEDS: divalproex ER 250 mg Tablet (24H) 750 MG PO (17:10)
[2023-12-04] MEDS: metformin 500 mg Tablet 1000 MG PO (17:10)
[2023-12-04 17:26] LABS: Glucose Point of Care 417 mg/dL (70-110)
[2023-12-04 19:50] LABS: Glucose Point of Care 308 mg/dL (70-110)
[2023-12-04] MEDS: hyDROXYzine 25 mg Capsule 50 MG PO (20:46)
[2023-12-04] MEDS: quetiapine 100 mg Tablet 200 MG PO (20:47)
[2023-12-04] MEDS: OLANZapine 5 mg ODT PO (20:47)
[2023-12-04] MEDS: ropinirole 0.25 mg Tablet PO (20:48)
[2023-12-04] MEDS: trazodone 100 mg Tablet PO (20:48)
[2023-12-04] MEDS: insulin glargine 100 units/1 mL 20 UNIT SUBCUT (20:48)
[2023-12-05 06:00] VITALS: BP 127/77; PULSE 90; RESP 18; TEMP 36.8; O2SAT 95
[2023-12-05 07:40] LABS: Glucose Point of Care 331 mg/dL (70-110)
[2023-12-05] MEDS: BuSPIRONE 10 mg Tablet 30 MG PO ×2 (08:08→17:33)
[2023-12-05] MEDS: hyDROXYzine 25 mg Capsule 50 MG PO (08:08)
[2023-12-05] MEDS: citalopram 20 mg Tablet PO (08:08)
[2023-12-05] MEDS: amlodipine 10 mg Tablet PO (08:09)
[2023-12-05] MEDS: metformin 500 mg Tablet 1000 MG PO ×2 (08:10→17:33)
[2023-12-05] MEDS: divalproex ER 250 mg Tablet (24H) PO (08:10)
[2023-12-05] MEDS: HYDROcodone-acetaminophen 7.5-325 mg Tablet 1 TAB PO (08:11)
[2023-12-05] MEDS: metoprolol tartrate 50 mg Tablet 25 MG PO ×2 (08:11→17:33)
[2023-12-05] MEDS: gabapentin 300 mg Capsule PO ×3 (08:11→20:50)
[2023-12-05] MEDS: atorvastatin 40 mg Tablet PO (08:11)
[2023-12-05] MEDS: pantoprazole DR 40 mg Tablet PO (08:11)
[2023-12-05] MEDS: insulin lispro 100 unit/1 mL SUBCUT ×4 (08:11→20:50)
[2023-12-05] MEDS: insulin glargine 100 units/1 mL 55 UNIT SUBCUT (08:42)
--- NOTE | 2023-12-05 08:50 | PC.NURSE ---
PT IN DAY ROOM CONTINUES TO EAT 100% OF MEALS, TAKES MULTIPLE SUGAR PACKETS WITH COFFEE, WHEN A SUBSTITUTE IS OFFERRED. PT HAS BEEN EDUCATED AND OFFERED DIABETIC SNACKS AND SUGAR SUBSTITUTES BUT DECLINES STATING I ALWAYS EAT WHAT I WANT AND I'M FINE. PT HAS BEEN OBSERVED EATING DIORITOES, COOKIES, CRACKER AND DRINKING FRUIT PUNCH ANC LEMONAID IN EXCESS. PT HAS BEEN EDUCATE ON INCREASED BLOOD SUGAR BUT PT STATES I'M NOT CONCERNED ITS FINE. DENIES SI/HI AND AVH AT THIS TIME. RATES PAIN IN BACK 05/16. HYDROCODONE 7.5/325MG GIVEN ORDERED. RATES ANXIETY AND DEPRESSION 11/13. VISTARIL 50 MG GIVEN ORDERED FOR ANXIETY. PT SPEAKS IN LOW TONE AND HARD TO UNDERSTAND AT TIMES. HAS BEEN PLEASANT. ALL QUESTIONS ANSWERED AND SUPPORT WAS VOICED.
[2023-12-05 09:18] LABS: Blood Urea Nitrogen 9 mg/dL (6-20); Calcium 8.9 mg/dL (8.5-10.5); Carbon Dioxide 22 mmol/L (22-29); Chloride 99 mmol/L (98-107); Glomerular Filtration Rate 177.5 mL/min (90-130); Glucose 370 mg/dL (65-115); Osmolality Calculated 292 mOsm/kg (285-295); Sodium 134 mmol/L (136-145)
[2023-12-05 09:29] LABS: Anion Gap 17.6 (5-19); Creatinine Clr Calc Pharmacy 220.3431; Potassium 4.6 mmol/L (3.5-5.1)
[2023-12-05] MEDS: ibuprofen 600 mg Tablet PO (09:38)
--- NOTE | 2023-12-05 11:48 | P.NPUPN_ITS ---
Subjective NPU 2 Subjective: Patient presents today reporting that he is feeling optimistic about his discharge tomorrow. He reports he has an appointment with his outpatient primary care provider where he would get all of his refills for his medications then. He reports that he thinks this was all about him running out of his psychiatric medications and he reports he will not do that again. He reports feeling close to being back to himself. He denied any side effects to medications we discussed discharge in the morning. Mental Status Exam 2 MSE Comments: This is an obese white male in hospital scrubs with limited grooming and eye contact. No abnormal movements except for psychomotor retardation. Cooperative with exam in mild distress. Speech was decreased rate and volume. Mood described as a little better, affect congruent. Thought process organized. Thought content: Patient endorsed some suicidal ideation prior to admission but currently denies suicidal or homicidal ideations, there were no delusions reported or noted, he denied any visual hallucinations but endorses auditory hallucinations. Patient reports feelings of depression, helplessness, hopelessness, worthlessness. Patient has been suicidal. Patient reports low energy, lack of enjoyment in activities, and sleep problems. No current thoughts of self-harm or harm to others. No paranoia. No auditory or visual hallucinations. Mood described as okay .Attention and concentration were limited and memory appeared mostly reliable but were not formally tested. He is alert and oriented x3. Insight and judgment are limited but improving and impulse control is limited versus impaired. Vitals/I&O/Wt Last Vital Signs Temp 98.2 F 12/05/23 06:00 Pulse 90 12/05/23 06:00 Resp 18 12/05/23 06:00 BP 127/77 12/05/23 06:00 Pulse Ox 95 12/05/23 06:00 O2 Del Method Room Air 12/05/23 06:00 Weight last 48 hrs Weight 102.603 kg Data NPU 12/03/23 08:08 12/05/23 08:54 A&P Assessment and plan (1) Bipolar disorder, current episode depressed, moderate: (2) Obstructive sleep apnea (adult) (pediatric): (3) Nicotine dependence, cigarettes, with other nicotine-induced disorders: (4) Anxiety: Plan This is a 48-year-old white male known to the [facility] system from a long history of treatment with reports of anxiety, depression and some psychosis that has been dealing with bipolar depression and anxiety. Patient's symptoms have been exacerbated by the loss of his mother years ago and the recent discontinuation of his medication. Patient's social situation, including difficulty with transportation and living situation, may be contributing to his mental health issues. 1. Restarted previous medication. Including Seroquel, Celexa, BuSpar and Depakote. 2. Continue every 15 minute checks for safety. 3. Encourage individual, group and milieu therapy. 4. Encourage sober living treatment at the highest level of care to which he is willing to commit. 5. Appreciate hospitalist consult and will follow recommendations as indicated. 6. Tentative plan for discharge tomorrow. Involuntary Hold Information 2 96 Hour Hold: 96 Hour Involuntary Admission: No Attestations NPU 2 Medical Necessity Statement*: Inpatient psychiatric evaluation is medically necessary and the clinically appropriate intervention at this time. We will monitor/initiate medications and make changes as indicated. Likely length of stay 1-2 days. Coding Level of Care Code Acute Code for [facility] Diagnoses Bipolar disorder, current episode depressed, moderate F31.32 Obstructive sleep apnea (adult) (pediatric) G47.33 Nicotine dependence, cigarettes, with other nicotine-induced disorders F17.218 Anxiety F41.9
[2023-12-05 11:50] LABS: Glucose Point of Care 292 mg/dL (70-110)
[2023-12-05 14:00] VITALS: BP 133/84; PULSE 99; RESP 20; TEMP 36.6; O2SAT 95
[2023-12-05] MEDS: acetaminophen 325 mg Tablet 650 MG PO (15:00)
[2023-12-05 17:17] LABS: Glucose Point of Care 222 mg/dL (70-110)
[2023-12-05] MEDS: divalproex ER 250 mg Tablet (24H) 750 MG PO (17:33)
[2023-12-05 20:14] LABS: Glucose Point of Care 241 mg/dL (70-110)
[2023-12-05 20:43] VITALS: BP 128/84; PULSE 90; RESP 18; TEMP 36.6; O2SAT 93
[2023-12-05] MEDS: insulin glargine 100 units/1 mL 20 UNIT SUBCUT (20:49)
[2023-12-05] MEDS: ropinirole 0.25 mg Tablet PO (20:49)
[2023-12-05] MEDS: quetiapine 100 mg Tablet 200 MG PO (20:49)
[2023-12-05] MEDS: trazodone 100 mg Tablet PO (20:50)
[2023-12-06 06:00] VITALS: BP 123/69; PULSE 99; RESP 16; O2SAT 93
[2023-12-06 07:45] LABS: Glucose Point of Care 190 mg/dL (70-110)
[2023-12-06] MEDS: atorvastatin 40 mg Tablet PO (07:51)
[2023-12-06] MEDS: BuSPIRONE 10 mg Tablet 30 MG PO (07:51)
[2023-12-06] MEDS: pantoprazole DR 40 mg Tablet PO (07:51)
[2023-12-06] MEDS: citalopram 20 mg Tablet PO (07:51)
[2023-12-06] MEDS: gabapentin 300 mg Capsule PO (07:51)
[2023-12-06] MEDS: divalproex ER 250 mg Tablet (24H) PO (07:51)
[2023-12-06] MEDS: amlodipine 10 mg Tablet PO (07:52)
[2023-12-06] MEDS: metoprolol tartrate 50 mg Tablet 25 MG PO (07:52)
[2023-12-06] MEDS: insulin glargine 100 units/1 mL 55 UNIT SUBCUT (07:52)
[2023-12-06] MEDS: insulin lispro 100 unit/1 mL SUBCUT ×2 (08:03→11:56)
[2023-12-06] MEDS: metformin 500 mg Tablet 1000 MG PO (08:06)
--- NOTE | 2023-12-06 08:17 | P.NPUDS_ITS ---
Diagnoses at Discharge Discharge Diagnosis (1) Bipolar disorder, current episode depressed, moderate: Status: Acute (2) Obstructive sleep apnea (adult) (pediatric): Status: Acute (3) Nicotine dependence, cigarettes, with other nicotine-induced disorders: Status: Acute (4) Anxiety: Status: Acute Reason for Visit Reason for Visit: Brief History: History of Present Illness Barrie Almanzar is a 48 year old male who presented to the emergency department at outside hospital reporting that he had been off of his medication for 2 weeks and starting to feel increased depression and suicidal thoughts. He was transferred to [facility] and admitted to the neuropsychiatric unit for definitive treatment of those issues. He is known to [facility] through services dating back to [address] in [address]. He is unknown to the neuropsychiatric unit. An excerpt of an outpatient psychiatric evaluation from February 2014 is included for historical context. He presented today reporting: CHIEF COMPLAINT Patient ran out of medication a couple of weeks ago, starting to feel depressed and suicidal. HISTORY OF THE PRESENT COMPLAINT Barrie, the patient, reported that he had run out of his medication a couple of weeks ago due to transportation issues and difficulties in accessing his doctor's office. He has been off his medication for a couple of weeks and has started to feel depressed and suicidal. The medications he was on before he ran out include Terequel, Depakote, Select Halima, and Buspar. Barrie has been dealing with symptoms of bipolar depression and anxiety for about five years. He first started experiencing these symptoms and needing medication around the same time. A significant event that occurred around this time was the loss of his mother, which he reported as a major stressor. When he is depressed, Barrie experiences low energy, anhedonia, sleep problems, and feelings of helplessness, hopelessness, and worthlessness. He has also had suicidal thoughts, although this is the first time he has reported them. He denied experiencing paranoia, hallucinations, or severe nightmares or flashbacks about traumatic events in his life. Barrie reported that he uses tobacco and consumes alcohol very little. He denied using marijuana, cocaine, methamphetamine, opiates, or pain pills, except for prescribed hydrocodone. He has not had any problems with these substances in the past and has never been to rehab or had a DUI. Barrie's goal is to get his medications back on track to manage his symptoms. He has been on disability since around 2014 or 2015 and currently lives with his aunt. He has not had any legal problems or been to fdc. He reported having high blood pressure and diabetes, as well as degenerative disc disease. He has had surgeries for a cyst on his left wrist and a stomach hernia. At the time of the consultation, Barrie described his mood as okay and denied having current thoughts of self-harm or harm to others. He also denied feeling paranoid or experiencing hallucinations. MENTAL HEALTH HISTORY Patient has been dealing with symptoms for about five or six years, following the loss of his mother. Diagnosed with bipolar depression and anxiety. No history of psychiatric hospitalization. No history of substance abuse or addiction. No history of sexual abuse. No history of traumatic events. No history of service. No history of legal problems. SOCIAL HISTORY Patient has difficulty with transportation, leading to difficulty in accessing medical care. Patient uses tobacco and consumes alcohol very little. No use of cannabis, cocaine, methamphetamine, opiates, or pain pills. Patient has a younger sister. Patient was once and is now . Patient is on disability since 2014 or 2015. Patient lives with his aunt. Per his 02/21/2014 [facility] outpatient psychiatric evaluation: [facility] Outpatient Progress Note Time in: 10:40 AM Time out: 11:20 AM Chief Complaint: Depression and bipolar History of present illness: Barrie is a 38-year-old white male who presents for the evaluation of bipolar disorder. He was given this diagnosis several years ago and has been tried on a few different mood stabilizers including Depakote, Seroquel, and Lamictal with no benefit. He currently is taking a combination of bupropion XL 150 mg daily, temazepam 30 mg at night, and Lamictal 100 mg daily. He has received no benefit from this medication. He is not having any side effects. I asked him why he carries a diagnosis of bipolar disorder he tells me I have mood swings that happen real quickd . Basically he has affective dysregulation, poor frustration tolerance, and irritability that has been confused for manic episodes. He could not describe anything that sounds remotely close to a manic episode in his life. The longest a mood swing has lasted has been for a couple hours and is usually only a few minutes. Given this, I am changing his diagnosis. I have no doubt that he is depressed and he is obviously quite melancholic today. He endorses frequent tearfulness, depression, anhedonia, appetite loss, difficulty initiating and sustaining sleep, and passive thoughts of . He has thoughts of suicide quite frequently, but denies that he would ever do anything to harm himself and he has no desire to harm himself in these thoughts are ego dystonic. He tells me that he has depression that comes and goes, but he is never happy. His entire adult life he has been depressed and I think he most likely has dysthymic disorder on top of major depression. He is an anxious fellow, but I do not think he has generalized anxiety disorder. A major problem he has difficulty initiating and sustaining sleep. He does not have a decreased need for sleep, rather he has insomnia. He has been diagnosed with obstructive sleep apnea and he tells me that he wears his CPAP machine consistently. She has a lot of problems in his life for him. He is attempting to get disability because of a chronic back problem, he has poor, he is isolated from his social network, and his stepfather is dying. In fact, he tells me that his stepfather most likely today and he was quite shaken up about this. I offer to reschedule his evaluation, but he wanted to go through with it today. I explained to him that any treatment we give needs to be viewed in light of the fact that he is going through bereavement. Barrie is a rather simple man and I suspect that there is a borderline level of intellectual functioning. He was in special classes growing up and states I am slow . Past Psychiatric History: No hospitalizations, no suicide attempts, no history of self-mutilation. Family Psychiatric History: He tells me that everyone in his family has been diagnosed with bipolar disorder, but I doubt this. No family history of suicide. Past Medical History:COPD, obstructive sleep apnea, asthma, hypertension, chronic back pain Substance Use History: He has never had a problem with drugs or alcohol. He rarely drinks alcohol and has never tried illicit substances. Social History: He was born and raised in [place]. His parents when he was 5 years old and he has no contact with his biological father. His mother his stepfather when he was 5 and he tells me he's been my father since then . His stepfather is currently dying. Barrie has one full sister and 5 half siblings very at he tells me that his childhood was aright . There is no history of physical or sexual trauma. He was in special education classes and he quit in 10th grade, but ended up getting a GED. He lives in trouble with his girlfriend Tahira and they have been together for 4 years. He was once for 6 years in his 20s, but they had a mutual separation. He has no children. He is unemployed and trying to get disability. He has no access to firearms. He tells me that he believes in God, but does not go to synagogue. He has no current legal problems and only has a history of shoplifting on one occasion. Hospital Course Hospital Course He slowly acclimated to the individual, group and milieu therapies provided. He presented with depression and history of bipolar disorder with significant difficulties with recent loss of his mother as well as being off his medication for a couple of weeks. We worked with him to restart his medication at appropriate doses and titrated down back to previous doses before discharge. He had significant improvement and then worked with the social work team to look for appropriate resources and aftercare appointments. He was able to contract for safety outside of the hospital prior to discharge. At the outside hospital, the patient had routine laboratory studies which were within normal limits except for a few outliers. Additionally, there was a general medical evaluation which was also within normal limits and revealed no new acute processes. At the time of discharge, he denied psychosis or lethality. Mood and anxiety were well managed. The patient endorsed a plan to avoid all drugs of abuse and follow up with the aftercare recommendations of the treatment team. The patient was evaluated and deemed to be absent credible lethality and had achieved the maximum benefit from an inpatient hospitalization, and so was discharged. Involuntary Hold Information 96 Hour Hold: 96 Hour Involuntary Admission: No Mental Status Exam MSE Comments: This is an obese white male in hospital scrubs with limited grooming and eye contact. No abnormal movements except for psychomotor retardation. Cooperative with exam in mild distress. Speech was decreased rate and volume. Mood described as a little better, affect congruent. Thought process organized. Thought content: Patient endorsed some suicidal ideation prior to admission but currently denies suicidal or homicidal ideations, there were no delusions reported or noted, he denied any visual hallucinations but endorses auditory hallucinations. Patient reports feelings of depression, helplessness, hopelessness, worthlessness. Patient has been suicidal. Patient reports low energy, lack of enjoyment in activities, and sleep problems. No current thoughts of self-harm or harm to others. No paranoia. No auditory or visual hallucinations. Mood described as okay .Attention and concentration were limited and memory appeared mostly reliable but were not formally tested. He is alert and oriented x3. Insight and judgment are limited but improving and impulse control is limited versus impaired. Discharge Data Studies Completed and Pending: Laboratory Results WBC 8.23 10^3/uL (3.2 9-11.43) 12/03/23 08:08 RBC 5.30 10^6/uL (3.8 5-5.65) 12/03/23 08:08 Hgb 16.00 g/dL (11.27 -16.99) 12/03/23 08:08 Hct 48.9 % (37-53) 12/03/23 08:08 MCV 92.3 fl (82-101) 12/03/23 08:08 MCH 30.2 pg (27-33) 12/03/23 08:08 MCHC 32.7 g/dL (30-55) 12/03/23 08:08 RDW 12.5 % (12.1-15.1 ) 12/03/23 08:08 Plt Count 158 10^3/cmm (157 -399) 12/03/23 08:08 MPV 11.1 fL (7.4-10.4 ) H 12/03/23 08:08 Neut % (Auto) 50.3 % 12/03/23 08:08 Lymph % (Auto) 38.4 % 12/03/23 08:08 Brewster % (Auto) 9.2 % 12/03/23 08:08 Eos % (Auto) 1.2 % 12/03/23 08:08 Baso % (Auto) 0.7 % 12/03/23 08:08 Neut # (Auto) 4.13 10^3/uL (1.8 -7.7) 12/03/23 08:08 Lymph # (Auto) 3.2 10^3/uL (0.8- 4.8) 12/03/23 08:08 Brewster # (Auto) 0.8 10^3/uL (0.2- 0.9) 12/03/23 08:08 Eos # (Auto) 0.1 10^3/uL (0.0- 0.8) 12/03/23 08:08 Baso # (Auto) 0.1 10^3/uL (0.0- 0.1) 12/03/23 08:08 Nucleated RBC % (a uto) 0 % 12/03/23 08:08 Nucleated RBCs # 0.0 /100WBC 12/03/23 08:08 Sodium 134 mmol/L (136-1 45) L 12/05/23 08:54 Potassium 4.6 mmol/L (3.5-5 .1) 12/05/23 08:54 Chloride 99 mmol/L (98-107 ) 12/05/23 08:54 Carbon Dioxide 22 mmol/L (22-29) 12/05/23 08:54 Anion Gap 17.6 (5-19) 12/05/23 08:54 BUN 9 mg/dL (6-20) 12/05/23 08:54 Creatinine 0.5 mg/dL (0.7-1. 2) L 12/05/23 08:54 GFR Calculation 177.5 mL/min (90- 130) H 12/05/23 08:54 Glucose 370 mg/dL (65-115 ) H 12/05/23 08:54 POC Glucose 190 mg/dL (70-110 ) H 12/06/23 07:43 Estimat Average Gl ucose 249 12/02/23 20:35 Hemoglobin A1c 10.3 % (4.0-6.0) H 12/02/23 20:35 Calculated Osmolal ity 292 mOsm/kg (285- 295) 12/05/23 08:54 Calcium 8.9 mg/dL (8.5-10 .5) 12/05/23 08:54 Phosphorus 2.7 mg/dL (2.5-4. 5) 12/02/23 20:35 Magnesium 1.9 mg/dL (1.7-2. 3) 12/03/23 08:08 Total Bilirubin 0.2 mg/dL (0.15-1 .2) 12/02/23 20:35 AST 10 U/L (0-40) 12/02/23 20:35 ALT 6 U/L (0-41) 12/02/23 20:35 Alkaline Phosphata se 95 U/L (40-130) 12/02/23 20:35 Total Protein 6.2 g/dL (6.6-8.7 ) L 12/02/23 20:35 Albumin 3.6 g/dL (3.5-5.2 ) 12/02/23 20:35 Globulin 2.6 g/dL (1.3-4.6 ) 12/02/23 20:35 Procalcitonin 0.16 ng/mL (0-0.5 ) 12/02/23 20:35 Urine Opiates Scre en Positive ng/mL (N egative) H 12/03/23 17:30 Ur Barbiturates Sc reen Negative ng/mL (N egative) 12/03/23 17:30 Ur Phencyclidine S crn Negative ng/mL (N egative) 12/03/23 17:30 Ur Amphetamines Sc reen Negative ng/mL (N egative) 12/03/23 17:30 U Benzodiazepines Scrn Negative ng/mL (N egative) 12/03/23 17:30 Urine Cocaine Scre en Negative ng/mL (N egative) 12/03/23 17:30 U Marijuana (THC) Screen Negative ng/mL (N egative) 12/03/23 17:30 Ethyl Alcohol < 10 mg/dL (0-10) 12/01/23 23:26 Vitals: Last Vital Signs Temp 97.9 F 12/05/23 20:43 Pulse 99 12/06/23 06:00 Resp 16 12/06/23 06:00 BP 123/69 12/06/23 06:00 Pulse Ox 93 12/06/23 06:00 O2 Del Method Room Air 12/06/23 06:00 Discharge Plan Discharge Patient Disposition: Home Condition: Stable Prescriptions: New amlodipine 10 mg Tablet 10 mg PO DAILY 30 Days Qty: 30 1RF metformin 500 mg Tablet 1,000 mg PO BIDWM 30 Days Qty: 120 1RF hydroxyzine pamoate 25 mg Capsule 50 mg PO Q6H PRN (Reason: Anxiety) 30 Days Qty: 120 1RF quetiapine 200 mg tablet 200 mg PO BEDTIME 30 Days Qty: 30 1RF Continued Lantus U-100 Insulin 100 unit/mL solution 25 unit SUBCUT .bedtime albuterol sulfate 2.5 mg /3 mL (0.083 %) solution for nebulization 2.5 mg inhalation Q6H fluticasone propionate 50 mcg/actuation spray,suspension 1 spray intranasal BID Rx Instructions: administer into each nostril buspirone 30 mg tablet See Rx Instructions .ROUTE .COMPLEX Qty: 60 5RF Dose Instruction: TAKE 1 TABLET BY MOUTH TWICE DAILY Rx Instructions: TAKE 1 TABLET BY MOUTH TWICE DAILY citalopram 40 mg tablet See Rx Instructions .ROUTE .COMPLEX Qty: 30 5RF Dose Instruction: TAKE 1 TABLET BY MOUTH DAILY Rx Instructions: TAKE 1 TABLET BY MOUTH DAILY divalproex 250 mg tablet extended release 24 hr See Rx Instructions .ROUTE .COMPLEX Qty: 120 5RF Dose Instruction: TAKE 1 TABLET BY MOUTH IN THE MORNING THEN TAKE 3 TABLETS BY MOUTH IN THE EVENING Rx Instructions: TAKE 1 TABLET BY MOUTH IN THE MORNING THEN TAKE 3 TABLETS BY MOUTH IN THE CORBY SELENE trazodone 100 mg tablet See Rx Instructions .ROUTE .COMPLEX Qty: 60 5RF Dose Instruction: TAKE 2 TABLETS BY MOUTH AT BEDTIME Rx Instructions: TAKE 2 TABLETS BY MOUTH AT BEDTIME hydrocodone-acetaminophen 7.5-325 mg tablet 1 tab PO BID PRN (Reason: Pain (Scale Score 4-6)) cholecalciferol (vitamin D3) 25 mcg (1,000 unit) capsule 25 mcg PO DAILY Synjardy 5-1,000 mg tablet 1 tab PO BID atorvastatin 40 mg tablet 40 mg PO DAILY 30 Days Qty: 30 1RF omeprazole 40 mg capsule,delayed release(DR/EC) 40 mg PO DAILY 30 Days Qty: 30 1RF ropinirole 0.25 mg tablet 0.25 mg PO DAILY 30 Days Qty: 30 1RF metoprolol tartrate 50 mg tablet 25 mg PO BID 30 Days Qty: 30 1RF gabapentin 300 mg capsule 300 mg PO TID 30 Days Qty: 90 1RF levocetirizine 5 mg tablet 5 mg PO DAILY 30 Days Qty: 30 1RF Discontinued quetiapine 200 mg tablet See Rx Instructions .ROUTE .COMPLEX Qty: 30 5RF Dose Instruction: TAKE 1 TABLET BY MOUTH AT BEDTIME FOR SLEEP Rx Instructions: TAKE 1 TABLET BY MOUTH AT BEDTIME FOR SLEEP Discharge Orders: Discharge Order (Routine); Ordered 12/06/23 Ordered By: Mrak Ramos Referrals: [facility] [Other] - 12/07/23 9:30 am (Initial assessment for services with Christine Leslie. Arrive 9:30am for a 10am appointment) Ruth Ann Carranza DO [Primary Care Provider] - 12/20/23 10:00 am Discharge Diet: Regular Discharge Activity: Resume usual activity Patient Instructions: Amlodipine (By mouth) (Hypertenipine-2.5, Norvasc, Norliqva), Metformin (By mouth) (Glucophage, Glucophage XR, Fortamet,..., Quetiapine (By mouth) (Seroquel, Seroquel XR, Seroquel XR 14-Day..., What is Insulin (DC), Type 2 Diabetes Management for Adults (ED), Opioid Safety Discharge Attestations NPU 2 Time Spent in Discharge Care*: less than 30 min Specific Discharge Activities: Specific discharge activities: educating patient, discussing with sample case porter/social workers/dc planners, documenting/other paperwork and evaluating patient/reviewing data Coding Level of Care Code Acute Code for Chg Fwd Diagnoses Bipolar disorder, current episode depressed, moderate F31.32 Obstructive sleep apnea (adult) (pediatric) G47.33 Nicotine dependence, cigarettes, with other nicotine-induced disorders F17.218 Anxiety F41.9
[2023-12-06] MEDS: ibuprofen 600 mg Tablet PO (08:21)
[2023-12-06 08:30] VITALS: BP 123/69; PULSE 99; RESP 16; O2SAT 93
[2023-12-06] MEDS: albuterol 2.5 mg/3 mL Neb INHALATION (08:35)
[2023-12-06 08:36] VITALS: PULSE 80; RESP 16; O2SAT 93
[2023-12-06 11:39] LABS: Glucose Point of Care 196 mg/dL (70-110)
[2023-12-06] MEDS: nicotine 4 mg lozenge MUCOUS MEM (11:59)
[2023-12-06 13:21] VITALS: BP 135/82; PULSE 94; RESP 16; TEMP 36.3; O2SAT 95
== END 2023-12-06 13:24 | disposition home or self-care (01) | DRG 885 ==
PROVIDERS: Internal Medicine; Admitting Provider Psychiatry & Neurology Psychiatry; Family Provider Family Medicine; PCP Family Medicine; Visit Provider Psychiatry & Neurology Psychiatry
DX: F31.9 Bipolar disorder, unspecified (principal); R45.851 Suicidal ideations; F17.210 Nicotine dependence, cigarettes, uncomplicated; G47.00 Insomnia, unspecified; G47.33 Obstructive sleep apnea (adult) (pediatric); F41.9 Anxiety disorder, unspecified; E78.5 Hyperlipidemia, unspecified; G89.29 Other chronic pain; M54.9 Dorsalgia, unspecified; G25.81 Restless legs syndrome; E11.9 Type 2 diabetes mellitus without complications; Z79.4 Long term (current) use of insulin; Z91.128 Patient's intentional underdosing of medication regimen for other reason
CPT/HCPCS: 36415; 36416; 80048; 80053; 80306; 80307; 82962; 83036; 83735; 84100; 84145; 85025; 94640; 96372; 97150; 97165; J1815; J7613